=== PATIENT | female | born 1950 | race Two or more races ===

== ENCOUNTER 2020-03-21 12:20 | Outpatient (REF) | payer MEDICARE, SELFPAY | END 2020-03-21 12:21 | disposition home or self-care (01) | LOC: HO.LAB 12:20 | PROVIDERS: PCP Internal Medicine Geriatric Medicine; Visit Provider Internal Medicine | DX: Z20.828 Contact with and (suspected) exposure to other viral communicable diseases (principal) | CPT/HCPCS: C9803; U0003 ==

== ENCOUNTER 2021-01-14 13:15 | Outpatient (REF) | payer MEDICARE, SELFPAY ==
--- NOTE | ~2021-01-14 | MM_ITS ---
EXAMINATION: MM SCREENING DIGITAL BREAST TOMOSYNTHESIS, BILATERAL CLINICAL INFORMATION: Screening. Asymptomatic. The lifetime risk of breast cancer based on the Tyrer-Cuzick Model is 2%. COMPARISON: Mammography: 03/29/2019, 03/03/2018, 02/25/2017 TECHNIQUE: Digital breast tomosynthesis is performed in both the craniocaudal and mediolateral oblique views along with computer-aided detection (CAD). Synthesized 2D images are generated from the tomosynthesis. FINDINGS: There are scattered areas of fibroglandular density (ACR BI-RADS breast composition Category b). There are no significant masses, abnormal calcifications, or other abnormalities. Parenchymal pattern is similar to prior studies. No significant changes. MM/MM tomosynthesis screening BI IMPRESSION: No mammographic evidence of malignancy. ASSESSMENT: BI-RADS 1: Negative RECOMMENDATION: Routine annual mammography screening. This patient's information was entered into a reminder system with a target due date for their next mammogram.
== END 2021-01-14 13:16 | disposition home or self-care (01) ==
LOC: HO.MAMMO 13:15
PROVIDERS: Visit Provider Internal Medicine Geriatric Medicine
DX: Z12.31 Encounter for screening mammogram for malignant neoplasm of breast (principal)
CPT/HCPCS: 77063; 77067

== ENCOUNTER 2021-05-21 09:14 | Outpatient (REF) | payer MEDICARE, SELFPAY ==
--- NOTE | ~2021-05-21 | MM_ITS ---
EXAMINATION: BONE DENSITOMETRY CLINICAL INDICATION: Osteoporosis. COMPARISON: Previous BD dated 09/23/2017 and baseline BD dated 06/24/2005. TECHNIQUE: Using a [employer] DXA System (software version: 13.1) manufactured by [employer], dual-energy x-ray absorptiometry was performed of the lumbar spine and left hip. The images are of good technical quality. Summary results are attached. FINDINGS: AP SPINE L1-L4 (excluding L3): The data of L1-L4 has been changed to exclude the L3 vertebral body, because degenerative changes at this level may cause overestimation of lumbar spine density. Current: BMD 1.027 g/cm2, Z-score 0.7, T-score -1.2, osteopenia, 2.1% decrease from previous, 6.4% increase from baseline (<5% change is not significant). Prior: BMD 1.049 g/cm2. Baseline: BMD 0.965 g/cm2. LEFT FEMUR, NECK: Current: BMD 0.838 g/cm2, Z-score 0.5, T-score -1.4, osteopenia. Prior: BMD 0.802 g/cm2. Baseline: BMD 0.784 g/cm2. LEFT FEMUR, TOTAL: Current: BMD 0.909 g/cm2, Z-score 0.9, T-score -0.8, normal, 0.4% increase from previous, 8.5% increase from baseline (<5% change is not significant). Prior: BMD 0.905 g/cm2. Baseline: BMD 0.838 g/cm2. IDENTIFIED RISK FACTORS: Early menopause, secondary osteoporosis, osteoporosis. HISTORY OF FRACTURE: None listed. MEDICATIONS: Calcium supplements or multivitamin, vitamin D. MM/XR DEXA axial skeleton IMPRESSION: 1. DIAGNOSIS: Osteopenia based on the lowest T-score value of -1.4 in the femoral neck applying World Health Organization criteria. 2. 10-YEAR FRACTURE RISK PREDICTION, FRAX: Major osteoporotic fracture (clinical spine, forearm, hip or shoulder) 5.8%. Hip fracture 0.9%. 3. Treatment Recommendations: NOF guidelines recommend consideration for treatment in postmenopausal women and men age 50 and older presenting with the following: -A hip or vertebral (clinical or morphometric) fracture. -T-score less than or equal to -2.5 at the femoral neck or spine after appropriate evaluation to exclude secondary causes. -Low bone mass at the hip or spine and a 10-year fracture probability by FRAX of greater than or equal to 3% for hip fracture or greater than or equal to 20% for major osteoporotic fracture based on the [place] adapted WHO algorithm. 4. Other Recommendations: All treatment decisions require clinical judgment and consideration of individual patient factors, including patient preferences, comorbidities, previous drug use, risk factors not captured in the FRAX model (e.g. frailty, falls, vitamin D deficiency, increased bone turnover, interval significant decline in bone density) and possible under or overestimation of fracture risk by FRAX. Additional medical evaluation for secondary cause of low bone mineral density may be appropriate. FUTURE SCAN RECOMMENDATION: People with diagnosed cases of osteoporosis or at high risk for fracture should have regular bone mineral density tests. For patients eligible for Medicare, routine testing is allowed once every 2 years. The testing frequency can be increased to one year for patients who have rapidly progressing disease, those who are receiving or discontinuing medical therapy to restore bone mass, or have additional risk factors.
== END 2021-05-21 09:15 | disposition home or self-care (01) ==
LOC: HO.MAMMO 09:14
PROVIDERS: PCP Internal Medicine Geriatric Medicine; Visit Provider Internal Medicine Geriatric Medicine
DX: M81.0 Age-related osteoporosis without current pathological fracture (principal)
CPT/HCPCS: 77080

== ENCOUNTER 2022-01-19 13:29 | Outpatient (REF) | payer OTHER, SELFPAY ==
--- NOTE | ~2022-01-19 | MM_ITS ---
EXAMINATION: MM SCREENING DIGITAL BREAST TOMOSYNTHESIS, BILATERAL CLINICAL INFORMATION: Screening. Asymptomatic. The lifetime risk of breast cancer based on the Tyrer-Cuzick Model is 4%. COMPARISON: Mammography: 01/14/2021, 03/29/2019, 03/03/2018 TECHNIQUE: Digital breast tomosynthesis is performed in both the craniocaudal and mediolateral oblique views along with computer-aided detection (CAD). Synthesized 2D images are generated from the tomosynthesis. FINDINGS: There are scattered areas of fibroglandular density (ACR BI-RADS breast composition Category b). There are no significant masses, abnormal calcifications, or other abnormalities. There are scattered shifting fibroglandular parenchymal densities from year to year related to variation in positioning. No developing density or architectural abnormality. Again, there are scattered bilateral coarse, vascular, round, rim calcifications. No significant changes. MM/MM tomosynthesis screening BI IMPRESSION: No mammographic evidence of malignancy. ASSESSMENT: BI-RADS 2: Benign RECOMMENDATION: Routine annual mammography screening. This patient's information was entered into a reminder system with a target due date for their next mammogram.
== END 2022-01-19 13:30 | disposition home or self-care (01) ==
LOC: HO.MAMMO 13:29
PROVIDERS: Visit Provider Internal Medicine Geriatric Medicine
DX: Z12.31 Encounter for screening mammogram for malignant neoplasm of breast (principal)
CPT/HCPCS: 77063; 77067

== ENCOUNTER 2023-01-26 10:28 | Outpatient (REF) | payer OTHER, SELFPAY ==
--- NOTE | ~2023-01-26 | MM_ITS ---
EXAMINATION: MM SCREENING DIGITAL BREAST TOMOSYNTHESIS, BILATERAL CLINICAL INFORMATION: Screening. Asymptomatic. COMPARISON: Mammography: This study is compared with prior exams dating back to 2017. TECHNIQUE: Digital breast tomosynthesis is performed in both the craniocaudal and mediolateral oblique views along with computer-aided detection (CAD). Synthesized 2D images are generated from the tomosynthesis. FINDINGS: There are scattered areas of fibroglandular density (ACR BI-RADS breast composition Category b). There is a focal asymmetry at the lower inner quadrant of the right breast at anterior depth. Additional mammographic imaging of this finding is advised. Targeted sonography may be performed at the discretion of the diagnostic radiologist. In the left breast, there are no significant masses, abnormal calcifications, or other abnormalities. Few, benign calcifications are present in each breast. MM/MM tomosynthesis screening BI IMPRESSION: Focal asymmetry of the right breast warrants additional mammographic imaging. Sonography may be performed at the discretion of the diagnostic radiologist. No mammographic signs of malignancy left breast. ASSESSMENT: BI-RADS BI-RADS 0 - Incomplete: Needs additional Imaging. RECOMMENDATION: 1. Additional views of the right breast 2. Targeted ultrasound if warranted after review of the additional views. 3. Radiology department staff will contact the patient for additional imaging. Additional Imaging required This examination should not preclude the clinical evaluation of a suspicious palpable abnormality. This patient's information was entered into a reminder system with a target due date for their next mammogram.
== END 2023-01-26 10:29 | disposition home or self-care (01) ==
LOC: HO.MAMMO 10:28
PROVIDERS: Visit Provider Internal Medicine Geriatric Medicine
DX: Z12.31 Encounter for screening mammogram for malignant neoplasm of breast (principal)
CPT/HCPCS: 77063; 77067

== ENCOUNTER → 2023-01-26 11:00 | Outpatient (BNV) | payer OTHER, SELFPAY | PROVIDERS: Visit Provider Radiology Diagnostic Radiology | DX: Z12.31 Encounter for screening mammogram for malignant neoplasm of breast (principal) | CPT/HCPCS: 77063; 77067 ==

== ENCOUNTER 2023-02-18 08:52 | Outpatient (REF) | payer MEDICARE, MEDICAID, SELFPAY | END 2023-02-18 08:53 | disposition home or self-care (01) | LOC: HO.MAMMO 08:52 | PROVIDERS: PCP Internal Medicine Geriatric Medicine; Visit Provider Internal Medicine Geriatric Medicine | DX: N64.89 Other specified disorders of breast (principal) | CPT/HCPCS: 77061; 77065 ==

== ENCOUNTER → 2023-02-18 09:00 | Outpatient (BNV) | payer MEDICARE, MEDICAID, SELFPAY | PROVIDERS: PCP Internal Medicine Geriatric Medicine; Visit Provider Radiology Diagnostic Radiology | DX: R92.1 Mammographic calcification found on diagnostic imaging of breast (principal) | CPT/HCPCS: 77061; 77065; G0279 ==

== ENCOUNTER 2023-03-22 11:49 | Outpatient (REF) | payer OTHER, SELFPAY ==
[2023-03-22 13:32] LABS: MANUAL DIFF FLAG NO
[2023-03-22 13:42] LABS: Basophils Absolute Auto 0.1 X10*3/uL (0.0-0.2); Basophils Percent Auto 0.6 % (0-2); Eosinophils Absolute Auto 0.2 X10*3/uL (0.0-0.4); Eosinophils Percent Auto 2.1 % (0-4); Imm Gran Abs Auto 0.02 X10*3/uL (0.00-0.03); Imm Gran Pct Auto 0.2 % (0.0-0.4); Lymphocytes Absolute Auto 3.8 X10*3/uL (1.2-4.9); Lymphocytes Percent Auto 46.8 % (20-40); Mean Corpuscular HGB Conc 33.3 g/dl (31.0-35.0); Mean Corpuscular Hemoglobin 29.2 pg (27.0-33.0); Mean Corpuscular Volume 87.7 fL (80.0-98.0); Monocytes Absolute Auto 0.8 X10*3/uL (0.1-1.2); Monocytes Percent Auto 9.6 % (2-11); Neutrophils Absolute Auto 3.3 x10*3/uL (2.0-8.3); Neutrophils Percent Auto 40.7 % (45-73); Platelet Count 160 X10*3/uL (160-400); Red Blood Count 4.79 X10*6/uL (4.20-5.50); Red Cell Distribution Width 13.4 % (11.0-16.0)
[2023-03-22 14:18] LABS: Creatinine Urine 140.47 mg/dL; Microalbum/Creatinine Ratio Ur 12.8 ug/mg cr (<30)
[2023-03-22 14:22] LABS: Anion Gap 14 (12-20); Blood Urea Nitrogen 14 mg/dL (9-16); Calcium 10.3 mg/dL (8.4-10.2); Carbon Dioxide 27 mmol/L (22-29); Chloride 103 mmol/L (96-108); Estimated Glomerular Filt Rate > 60; Glucose Random 135 mg/dL (60-115); Potassium 4.1 mmol/L (3.3-5.1); Sodium 140 mmol/L (135-145)
[2023-03-22 14:30] LABS: TSH reflex Free T4 0.52 uIU/mL (0.32-4.0)
[2023-03-22 14:36] LABS: Vitamin B12 313 pg/mL (200-900)
[2023-03-24 10:29] LABS: RPR Rapid Plasma Reagin NON-REACTIVE (NON-REACTIVE)
== END 2023-03-22 11:50 | disposition home or self-care (01) ==
LOC: HO.HHCL 11:49
PROVIDERS: Visit Provider Internal Medicine Geriatric Medicine
DX: E11.65 Type 2 diabetes mellitus with hyperglycemia (principal); I10 Essential (primary) hypertension; R41.3 Other amnesia
CPT/HCPCS: 36415; 80048; 82043; 82570; 82607; 84443; 85025; 86592

== ENCOUNTER → 2023-07-05 13:45 | Outpatient (REF) | payer OTHER, SELFPAY ==
--- NOTE | 2023-07-05 13:50 | CA_ITS ---
Transthoracic Echocardiogram Patient (Last, First, Middle): Kitty Thornton M Gender: Female Date of : 1950 Age: 73 Procedure Date: 07/05/2023 Procedure Type: Transthoracic Echocardiogram Location: OP Height: 160. cm Weight: 56.7 kg BSA: 1.58 m2 Heart Rate: 76 bpm BP: 125 / 75 mmHg Statement Distribution Clerk: TOI Elizabeth MD: Medhat Hernandez MD Mold Filler: Irineo Paz MD Symptoms: LEFT VENTRICULAR OUTFLOW TRACT. Q24.8 Study Quality: Fair ECG Rhythm: Sinus Conclusions: - 1. Normal LV ejection fraction of 65-70% with mild asymmetric septal hypertrophy without clear evidence of dynamic obstruction across the LVOT 2. Mild calcific aortic stenosis 3. Normal RV systolic pressure 4. No gross pericardial effusion Findings Left Ventricle Normal left ventricular size, thickness, and systolic function. The visually estimated ejection fraction is between 65-70%. There is no dynamic left ventricular outflow tract obstruction. There is systolic anterior motion of the chordae of the mitral valve. Spectral Doppler is indicative of an impaired relaxation filling pattern. E/E prime ratio is between 8 and 15 consistent with indeterminate filling pressures. There is mild septal asymmetric hypertrophy. Right Ventricle Normal right ventricular cavity size and systolic function. Atria The left atrium is normal in size. Interatrial shunt cannot be excluded. Aortic Valve There is mild calcification of the aortic valve. There is mild aortic valve stenosis. The peak aortic gradient is 14 mmHg.The mean gradient is 8 mmHg. There is no aortic valve regurgitation. Mitral Valve There is mild anterior and posterior mitral leaflet thickening. There is mild mitral annular calcification. There is trace mitral valve regurgitation. There is no mitral valve stenosis. Pulmonic Valve The pulmonic valve is likely normal. Tricuspid Valve Normal tricuspid valve structure. There is trace tricuspid valve regurgitation. The right ventricular systolic pressure is normal. The right ventricular systolic pressure is 24 mmHg. Normal right atrial pressure. There is no evidence of pulmonary hypertension. Great Vessels All visible segments of the aorta are normal in size. The pulmonary artery was not well visualized. There is no dilatation of the ascending aorta measuring 3.00 cm. Venous The inferior vena cava is normal in size and collapses greater than 50% with inspiration. Pericardium/Pleural There is no evidence of pericardial effusion. Prior Study Comparison No prior study available for comparison. Measurements 2D Linear Measurements IVSd: 1.45 0.6-0.9/0.6-1.0 cm LVIDd: 2.78 3.9-5.3/4.2-5.9 cm LVIDd Index: 1.76 2.4-3.2/2.2-3.1 cm/m2 LVIDs: 1.64 2.0-3.6 cm LVPWd: 1.08 0.7-1.1 cm LA Diam: 2.80 2.7-3.8/3.0-4.0 cm LAIDs Index: 1.77 1.5-2.3 cm/m2 LV Mass: 133.37 67-162/88-224 g LV Mass Index: 84.41 43-95/49-115 g/m2 LVOT Diam: 1.80 3.0+(-)1.3 cm 2D Systolic Function EF 4C: 68.30 >55% EF 2C: 70.00 >55% EF BiP: 69.70 >55% Mitral Valve MV Pk E: 0.78 MV PK A: 1.12 MV Decel Time: 285.00 E/A: 0.70 E'Lateral: 6.42 E'Medial: 5.87 E/E' Med: 13.30 E/E' Lat: 12.20 PHT: 84.00 MVA PHT: 2.62 Decel Luce: 2.74 Aortic Valve AoV Pk Lino: 1.90 AoV Mn Lino: 1.31 AoV VTI: 0.38 AoV Pk Grad: 14.00 Aov Mn Grad: 8.00 CHONG Cont.VTI: 1.43 LVOT LVOT Pk Lino: 1.05 LVOT Mn Lino: 0.76 LVOT VTI: 0.22 LVOT Pk Grad: 4.00 LVOT Mn Grad: 3.00 LVOT Diam: 1.80 LVOT Area: 2.54 Diastolic Function MV Pk E: 0.78 MV Pk A: 1.12 E/A: 0.70 E'Medial: 5.87 E/E' Med: 13.30 E' Laterial: 6.42 E/E' Lat: 12.20 Right Ventricle TAPSE (mm): 15.40 TVS' Lino: 11.90 Tricuspid Valve TR Pk Lino: 2.31 TR Pk Grad: 21.00 RA Press: 3.00 RVSP: 24.00 Great Vessels Aorta Sinus of Valsalva: 3.00 2.0-3.5 cm Ao Asc: 3.00 2.1-3.4 cm Pulmonary Valve PV Pk Lino: 0.94 Peak PV Grad: 4.00 Updated in Other Vendor System with Status of Final Irineo Paz MD electronically signed on 07/06/2023 4:52:24 PM with status of Final
== END ==
LOC: HO.CARD 13:45
PROVIDERS: Visit Provider Internal Medicine Cardiovascular Disease
DX: Q24.8 Other specified congenital malformations of heart (principal)
CPT/HCPCS: 93306

== ENCOUNTER → 2023-07-05 13:50 | Outpatient (BNV) | payer OTHER, SELFPAY | PROVIDERS: Visit Provider Internal Medicine Cardiovascular Disease | DX: I34.0 Nonrheumatic mitral (valve) insufficiency (principal); I36.1 Nonrheumatic tricuspid (valve) insufficiency | CPT/HCPCS: 93306 ==

== ENCOUNTER 2023-07-27 10:45 | Outpatient (REF) | payer OTHER, SELFPAY ==
[2023-07-27 11:14] LABS: MANUAL DIFF FLAG NO
[2023-07-27 11:36] LABS: Basophils Percent Auto 0.4 % (0-2); Eosinophils Absolute Auto 0.2 X10*3/uL (0.0-0.4); Eosinophils Percent Auto 2.7 % (0-4); Hematocrit 40.1 % (37.0-47.0); Hemoglobin 13.4 g/dl (12.0-16.0); Imm Gran Abs Auto 0.01 X10*3/uL (0.00-0.03); Imm Gran Pct Auto 0.1 % (0.0-0.4); Lymphocytes Absolute Auto 3.3 X10*3/uL (1.2-4.9); Lymphocytes Percent Auto 44.6 % (20-40); Mean Corpuscular HGB Conc 33.4 g/dl (31.0-35.0); Mean Corpuscular Hemoglobin 28.3 pg (27.0-33.0); Mean Corpuscular Volume 84.8 fL (80.0-98.0); Mean Platelet Volume 11.9 fL (9.4-12.3); Monocytes Absolute Auto 0.7 X10*3/uL (0.1-1.2); Monocytes Percent Auto 9.3 % (2-11); Neutrophils Absolute Auto 3.2 x10*3/uL (2.0-8.3); Neutrophils Percent Auto 42.9 % (45-73); Platelet Count 154 X10*3/uL (160-400); Red Blood Count 4.73 X10*6/uL (4.20-5.50); White Blood Count 7.4 X10*3/uL (4.8-10.8)
[2023-07-27 13:57] LABS: Alanine Aminotransferase 27 U/L (0-31); Albumin Level 4.4 g/dL (3.5-5.0); Alkaline Phosphatase 55 U/L (39-117); Anion Gap 14 (12-20); Aspartate Amino Transferase 33 U/L (5-31); Bilirubin Total 0.6 mg/dL (0.0-1.0); Blood Urea Nitrogen 7 mg/dL (9-16); Carbon Dioxide 29 mmol/L (22-29); Chloride 100 mmol/L (96-108); Cholesterol 169 mg/dL (<200); Estimated Glomerular Filt Rate > 60; Glucose Random 143 mg/dL (60-115); HDL Cholesterol 52 mg/dL (>40); LDL Cholesterol Calculated 87 mg/dL (<100); Sodium 138 mmol/L (135-145); Total Protein 7.6 g/dL (6.5-8.0); Triglycerides 151 mg/dL (<150)
[2023-07-27 14:04] LABS: Creatinine Urine 62.12 mg/dL; Microalbum/Creatinine Ratio Ur 12.8 ug/mg cr (<30)
== END 2023-07-27 10:46 | disposition home or self-care (01) ==
LOC: HO.HHCL 10:45
PROVIDERS: Visit Provider Internal Medicine Geriatric Medicine
DX: E11.65 Type 2 diabetes mellitus with hyperglycemia (principal)
CPT/HCPCS: 36415; 80053; 80061; 82043; 82570; 85025

== ENCOUNTER 2024-02-01 08:42 | Outpatient (REF) | payer OTHER, SELFPAY ==
--- NOTE | ~2024-02-01 | MM_ITS ---
EXAMINATION: MM SCREENING DIGITAL BREAST TOMOSYNTHESIS, BILATERAL CLINICAL INFORMATION: Screening. Asymptomatic. COMPARISON: Mammography: Comparison is made with available priors TECHNIQUE: Digital breast mammography with tomosynthesis is performed in both the craniocaudal and mediolateral oblique views along with computer-aided detection (CAD). FINDINGS: There are scattered areas of fibroglandular density (ACR BI-RADS breast composition Category b). There are no significant masses, abnormal calcifications, or other abnormalities. MM/MM tomosynthesis screening BI IMPRESSION: No mammographic evidence of malignancy. ASSESSMENT: BI-RADS BI-RADS 1 - Negative RECOMMENDATION: Routine annual mammography screening. 1 year F/U This examination should not preclude the clinical evaluation of a suspicious palpable abnormality. This patient's information was entered into a reminder system with a target due date for their next mammogram. Electronically signed by: Maria M Hoyos DO 02/13/2024 03:51 PM EDT
== END 2024-02-01 08:43 | disposition home or self-care (01) ==
LOC: HO.MAMMO 08:42
PROVIDERS: PCP Internal Medicine Geriatric Medicine; Visit Provider Internal Medicine Geriatric Medicine
DX: Z12.31 Encounter for screening mammogram for malignant neoplasm of breast (principal)
CPT/HCPCS: 77063; 77067

== ENCOUNTER → 2024-02-01 10:45 | Outpatient (BNV) | payer OTHER, SELFPAY | PROVIDERS: PCP Internal Medicine Geriatric Medicine; Visit Provider Internal Medicine | DX: Z12.31 Encounter for screening mammogram for malignant neoplasm of breast (principal) | CPT/HCPCS: 77063; 77067 ==

== ENCOUNTER 2024-02-09 10:38 | Outpatient (REF) | payer OTHER, SELFPAY ==
[2024-02-09 12:31] LABS: Alanine Aminotransferase 36 U/L (0-31); Albumin Level 4.4 g/dL (3.5-5.0); Alkaline Phosphatase 55 U/L (39-117); Anion Gap 14 (12-20); Aspartate Amino Transferase 31 U/L (5-31); Bilirubin Total 0.3 mg/dL (0.0-1.0); Blood Urea Nitrogen 8 mg/dL (9-16); Calcium 10.3 mg/dL (8.4-10.2); Carbon Dioxide 28 mmol/L (22-29); Chloride 103 mmol/L (96-108); Cholesterol 132 mg/dL (<200); Estimated Glomerular Filt Rate > 60; Glucose Random 143 mg/dL (60-115); HDL Cholesterol 49 mg/dL (>40); LDL Cholesterol Calculated 65 mg/dL (<100); Potassium 5.6 mmol/L (3.3-5.1); Sodium 139 mmol/L (135-145); Total Protein 7.5 g/dL (6.5-8.0); Triglycerides 92 mg/dL (<150)
[2024-02-09 12:34] LABS: Vitamin D 25-OH Total 141.7 ng/mL (>30)
[2024-02-09 12:40] LABS: Microalbumin Urine < 5.0 mg/L
== END 2024-02-09 10:39 | disposition home or self-care (01) ==
LOC: HO.HHCL 10:38
PROVIDERS: Visit Provider Internal Medicine Geriatric Medicine
DX: E11.65 Type 2 diabetes mellitus with hyperglycemia (principal); I10 Essential (primary) hypertension; M81.0 Age-related osteoporosis without current pathological fracture; Z12.11 Encounter for screening for malignant neoplasm of colon
CPT/HCPCS: 36415; 80053; 80061; 82043; 82306; 82570

== ENCOUNTER 2024-02-15 09:54 | Outpatient (REF) | payer OTHER, SELFPAY ==
[2024-02-15 11:03] LABS: MANUAL DIFF FLAG NO
[2024-02-15 11:13] LABS: Basophils Percent Auto 0.7 % (0-2); Eosinophils Absolute Auto 0.2 X10*3/uL (0.0-0.4); Eosinophils Percent Auto 3.7 % (0-4); Hematocrit 39.9 % (37.0-47.0); Hemoglobin 13.4 g/dl (12.0-16.0); Imm Gran Abs Auto 0.03 X10*3/uL (0.00-0.03); Imm Gran Pct Auto 0.5 % (0.0-0.4); Lymphocytes Absolute Auto 2.9 X10*3/uL (1.2-4.9); Lymphocytes Percent Auto 48.4 % (20-40); Mean Corpuscular HGB Conc 33.6 g/dl (31.0-35.0); Mean Corpuscular Hemoglobin 28.3 pg (27.0-33.0); Mean Corpuscular Volume 84.2 fL (80.0-98.0); Mean Platelet Volume 12.5 fL (9.4-12.3); Monocytes Absolute Auto 0.6 X10*3/uL (0.1-1.2); Monocytes Percent Auto 9.5 % (2-11); Neutrophils Absolute Auto 2.2 x10*3/uL (2.0-8.3); Neutrophils Percent Auto 37.2 % (45-73); Platelet Count 135 X10*3/uL (160-400); Red Blood Count 4.74 X10*6/uL (4.20-5.50); Red Cell Distribution Width 14.1 % (11.0-16.0)
[2024-02-15 11:29] LABS: Anion Gap 16 (12-20); Blood Urea Nitrogen 10 mg/dL (9-16); Calcium 9.5 mg/dL (8.4-10.2); Carbon Dioxide 23 mmol/L (22-29); Chloride 105 mmol/L (96-108); Estimated Glomerular Filt Rate > 60; Glucose Random 138 mg/dL (60-115); Potassium 4.7 mmol/L (3.3-5.1); Sodium 139 mmol/L (135-145)
== END 2024-02-15 09:55 | disposition home or self-care (01) ==
LOC: HO.HHCL 09:54
PROVIDERS: Visit Provider Internal Medicine Geriatric Medicine
DX: E11.65 Type 2 diabetes mellitus with hyperglycemia (principal); I10 Essential (primary) hypertension; M81.0 Age-related osteoporosis without current pathological fracture; Z12.11 Encounter for screening for malignant neoplasm of colon; E87.5 Hyperkalemia
CPT/HCPCS: 36415; 80048; 85025

== ENCOUNTER 2024-03-16 13:46 | Outpatient (REF) | payer OTHER, SELFPAY ==
--- NOTE | ~2024-03-16 | MM_ITS ---
EXAMINATION: BONE DENSITOMETRY CLINICAL INDICATION: Age-related osteoporosis without current pathological fracture. COMPARISON: Previous BD dated 05/21/2021 and baseline BD dated 06/24/2005. TECHNIQUE: Using a [employer] DXA System (software version: 13.1) manufactured by [employer], dual-energy x-ray absorptiometry was performed of the lumbar spine and left hip. The images are of good technical quality. Summary results are attached. FINDINGS: AP SPINE L1-L4 (excluding L3): The data of L1-L4 has been changed to exclude the L3 vertebral body, because at this level may cause overestimation of lumbar spine density. Current: BMD 1.068 g/cm2, Z-score 0.8, T-score -0.8, normal, 4.0% increase from previous, 11.1% increase from baseline (<5% change is not significant). Prior: BMD 1.027 g/cm2. Baseline: BMD 0.965 g/cm2. LEFT FEMUR, NECK: Current: BMD 0.883 g/cm2, Z-score 0.7, T-score -1.1, osteopenia. Prior: BMD 0.838 g/cm2. Baseline: BMD 0.784 g/cm2. LEFT FEMUR, TOTAL: Current: BMD 0.964 g/cm2, Z-score 1.3, T-score -0.3, normal, 6.1% increase from previous, 15.0% increase from baseline (<5% change is not significant). Prior: BMD 0.909 g/cm2. Baseline: BMD 0.838 g/cm2. IDENTIFIED RISK FACTORS: Osteoporosis. Low calcium intake. Secondary osteoporosis (early menopause). HISTORY OF FRACTURE: None listed. MEDICATIONS: Calcium supplement and/or multivitamin. Vitamin D. MM/XR DEXA axial skeleton IMPRESSION: 1. DIAGNOSIS: Osteopenia based on the lowest T-score value of -1.1 in the femoral neck applying World Health Organization criteria. 2. 10-YEAR FRACTURE RISK PREDICTION, FRAX: Major osteoporotic fracture (clinical spine, forearm, hip or shoulder) 5.7%. Hip fracture 0.9%. 3. Treatment Recommendations: NOF guidelines recommend consideration for treatment in postmenopausal women and men age 50 and older presenting with the following: -A hip or vertebral (clinical or morphometric) fracture. -T-score less than or equal to -2.5 at the femoral neck or spine after appropriate evaluation to exclude secondary causes. -Low bone mass at the hip or spine and a 10-year fracture probability by FRAX of greater than or equal to 3% for hip fracture or greater than or equal to 20% for major osteoporotic fracture based on the [place] adapted WHO algorithm. 4. Other Recommendations: All treatment decisions require clinical judgment and consideration of individual patient factors, including patient preferences, comorbidities, previous drug use, risk factors not captured in the FRAX model (e.g. frailty, falls, vitamin D deficiency, increased bone turnover, interval significant decline in bone density) and possible under or overestimation of fracture risk by FRAX. Additional medical evaluation for secondary cause of low bone mineral density may be appropriate. FUTURE SCAN RECOMMENDATION: People with diagnosed cases of osteoporosis or at high risk for fracture should have regular bone mineral density tests. For patients eligible for Medicare, routine testing is allowed once every 2 years. The testing frequency can be increased to one year for patients who have rapidly progressing disease, those who are receiving or discontinuing medical therapy to restore bone mass, or have additional risk factors. Electronically signed by: Wilson Cortes MD 03/19/2024 09:21 AM MARCI MAGUIRE
== END 2024-03-16 13:47 | disposition home or self-care (01) ==
LOC: HO.MAMMO 13:46
PROVIDERS: PCP Internal Medicine Geriatric Medicine; Visit Provider Internal Medicine Geriatric Medicine
DX: M81.0 Age-related osteoporosis without current pathological fracture (principal)
CPT/HCPCS: 77080

== ENCOUNTER 2024-06-22 12:32 | Outpatient (REF) | payer OTHER, SELFPAY ==
--- OUTSIDE RECORDS SUMMARY | 2024-06-22 13:20 | XMS_ITS | Encounter Summary ---
Author Organization [facility] Address [address] [place] [address] Care Team Providers Care Rapier Insertion Loom Fixer Name Role Phone Unavailable Primary Care Provider Unavailabl e Encounter Details Date Type Department Care Team (Latest Contact Info) Description 05/29/2024 Travel Social History Tobacco Use Types Packs/Day Years Used Date Smoking Tobacco: Never Passive Smoke Exposure: Never Smokeless Tobacco: Never Social Connections Answer Date Recorded Connectedness 0 03/05/2022 Financial Resource Strain Answer Date R ecorded Financial Resource Strain 0 2021 Stress Answer Date Recorded Stress 0 03/05/2022 Physical Activity Answer Date Recorded Physical Activity 0 08/10/2019 Food Insecurity Answer Date Recorded Food 0 03/05/2022 Transportation Needs Answer Date Record ed Transportation 0 03/05/2022 Housing Stability Answer Date Recorded Housing 0 03/05/2022 Safety and Environment Answer Date Carlos rded Safety 0 03/05/2022 Utilities Answer Date Recorded Utilities 0 03/05/2022 Employment Answer Date Recorded Stress 0 03/05/2022 Comments Unknown Sex and Gender Information Value Date Recorded Sex Assigned at Not on file Legal Sex Female 8:52 AM PDT Gender Identity Not on file Sexual Orientation Not on file COVID-19 Exposure Response Date Recorded In the last 10 days, have yo u been in contact with someone who was confirmed or suspected to have Coronavirus/COVID-19? No / Unsure 05/29/2024 9:33 AM EST documented as of this encounter Plan of Treatment Upcoming Encounters Date Type Department Care Team (Late st Contact Info) Description 07/31/2024 4:20 PM EDT Office Visit [facility] [address] [place] [phone] Andra Erazo, JONA [address] [place] [address] documented as of this encounter Visit Diagnoses Not on filedocumented in this encounter
--- OUTSIDE RECORDS SUMMARY | 2024-06-22 13:20 | XMS_ITS | Encounter Summary ---
Author Organization [facility] Address [address] [place] [address] Care Team Providers Care Social Media Analyst Name Role Phone Unavailable Primary Care Provider Unavailabl e Encounter Details Date Type Department Care Team (Late st Contact Info) Description 05/29/2024 10:20 AM EST Office Visit [facility] [address] [place] [phone] Andra Erazo DDS [address] [place], [place] [id number] Partial edentulism, unspecified edentulism class (Primary Dx) Social History Tobacco Use Types Packs/Day Years [...] AM EST documented as of this encounter Progress Notes * Andra Erazo DDS - 05/29/2024 10:31 AM EST Dental Removable - Impressions SUBJECTIVE: Kitty Thornton, 74 year old female, presents alone for mandibular resin partial denture Final Impressions. Digester Operator Helper: No No chief complaint on file. OBJECTIVE: RMHx: Yes Vitals: There were no vitals filed for this visit. ASSESSMENT: Dx: K08.409 Partial edentulism, unspecified edentulism class (primary encounter diagnosis) Dx Details (Clinical Decision-Making): patient came for the final impression for mandibular partialdenture PLAN: Informed Consent/PARQ (Procedure, Alternatives, Risks, Questions): Patient confirms informed consent using PARQ. Dental procedures in this visit [id number] - CASE PRESENTATION SUBS DTL & EXTENSIVE TX PLN (Completed) Service provider: Andra Erazo DDS Billing provider: Andra Erazo DDS [id number] - FINAL IMPRESSION - RPD (Completed) Service provider: Andra Erazo DDS Billing provider: Andra Erazo DDS Impressions taken with Alginate. Border molding completed with PVS Post-Op Information Given: verbal Referral: No orders of the following type(s) were placed in this encounter: Referral. Rx: No orders of the defined types were placed in this encounter. Behavior: Excellent DA: nakari Wax bite NV: Treatment - Denture Visit documented in this encounter Plan of Treatment Upcoming Encounters Date Type Department Care Team (Late st Contact Info) Description 07/31/2024 4:20 PM EDT Office Visit [facility] [address] [place] [phone] Andra Erazo DDS [address] [place] [address] documented as of this encounter Procedures Procedure Name Priority Date/Time Associated Diagnosis Comments FINAL IMPRESSION - RPD Routine 10:20 AM EST Partial edentulism, unspecified edentulism class CASE PRESENTATION SUBS DTL & EXTENSIVE TX PLN Routine 05/29/2024 10:20 AM EST Partial edentulism, unspecified edentulism class documented in this encounter Visit Diagnoses Diagnosis Partial edentulism, unspecified edentulism class- Primary documented in this encounter
--- OUTSIDE RECORDS SUMMARY | 2024-06-22 13:20 | XMS_ITS | Clinical Summary ---
Author Organization [facility] Address [id number] [place] [phone] Care Team Providers Care Electroneurodiagnostic Technologist Name Role Phone Unavailable Primary Care Provider Unavailabl e Surgical History Surgery Date Site/Laterality Comments SHOULDER SURGERY PROCEDURE: HISTORICAL SHOULDER SURGERY; COMMENT: rotator cuff repair HAND SURGERY PROCEDURE: HISTORICAL HAND SURGERY FOOT SURGERY PROCEDURE: HISTORICAL FOOT SURGERY COLONOSCOPY 11/20/12 PROCEDURE: HISTORICAL COLONOSCOPY; COMMENT: tics; repeat in ten yrs BREAST BIOPSY Right PROCEDURE: BX BREAST; PERC NEEDLE CORE W/IMAG GUID Medical History Medical History Date Comments Insomnia DX:Insomnia Osteoporosis DX:Osteoporosis Hyperlipidemia DX:Hyperlipidemi a Shoulder pain DX:Shoulder pain GE reflux 07/05/2012 DX:GE reflux Unspecified essential hypertension DX:Unspecified essential hypertension 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 Shoulder pain, bilateral 12/13/2012 DX:Shou lder pain, bilateral; COMMENT: Chronic problem and the patient had surgery in both shoulders in the past Hemangioma of liver 05/31/2013 DX:Hemangiom a of liver Diabetic neuropathy, painful (CMS/HCC) 3 DX:Diabetic neuropathy, painful (HCC) Diabetes type 2, uncontrolled 07/05/2012 DX :Diabetes type 2, uncontrolled Depression 07/05/2012 DX:Depression; C OMMENT: Patient is following with [facility] [place] Family History Medical History Relation Name Comments Cataracts Mother Arthritis Son 1 back Blindness Neg Hx Glaucoma Neg Hx Macular degeneration Neg Hx Strabismus Neg Hx Relation Name Status Comments Mother Son 1 Son 2 Social History Tobacco Use Types Packs/Day Years Used Date Smoking Tobacco: Former Smokeless Tobacco: Never Alcohol Use Standard Drinks/Week Comments No 0 (1 standard drink = 0.6 oz pur e alcohol) Sex and Gender Information Value Date Recorded Sex Assigned at Not on file Gender Identity Not on file Sexual Orientation Not on file Obstetrics History Plan of Treatment Health Maintenance Due Date Last Done Comments Diabetes: Annual GFR (Glomerular Filtration Rate) 1949 Diabetes: Annual Foot Exam 1959 Diabetes: Annual Retina Eye Exam 1959 Hepatitis A Vaccines (1 of 2 - Risk 2-dose series) 02/06/1968 Zoster Vaccines (1 of 2) 1999 Hepatitis B Vaccines (1 of 3 - Risk 3-dose series) 2009 Pneumococcal Vaccine: 65+ Years (2 of 2 - PCV) 10/12/2015 10/11/2014 Cholesterol Screening (Lipid Panel) 04/28/2022 Colorectal Cancer Screening: Colonoscopy 04/28/2022 Depression Screening 04/28/2022 Falls Risk Assessment 04/28/2022 Hepatitis C Screening 04/28/2022 Osteoporosis Screening (Bone Density Screening) 04/28/2022 Social Influencers of Health Screening 04/28/2022 Diabetes: Annual Urine Albumin-Creatinine Ratio (uACR) 05/01/2022 Diabetes: Blood Sugar Contro l Test (HGBA1C) 05/01/2022 DTaP,Tdap,and Td Vaccines (2 - Td or Tdap) 08/21/2022 08/21/2012 COVID-19 Vaccine (1 - 2023-2 5 season) 2024 Influenza Vaccine (#1) 2024 5, 03/27/2014, 03/14/2013 RSV Immunization Patients 60 + Years Old (1 - 1-dose 75+ series) 02/06/2024 HIB Vaccines Aged Out No longer eligi ble based on patient's age to complete this topic HPV Vaccines Aged Out No longer eligi ble based on patient's age to complete this topic IPV Vaccines Aged Out No longer eligi ble based on patient's age to complete this topic MMR Vaccines Aged Out No longer eligi ble based on patient's age to complete this topic Meningococcal ACWY Vaccine Aged Out N o longer eligible based on patient's age to complete this topic RSV Immunization Patients Under 20 months Aged Out No longer eligible b ased on patient's age to complete this topic Varicella Vaccines Aged Out No longer eligible based on patient's age to complete this topic
--- OUTSIDE RECORDS SUMMARY | 2024-06-22 13:20 | XMS_ITS | Clinical Summary ---
Author Organization [facility] Address [address] [place] [address] Care Team Providers Care Fence Rider Name Role Phone Unavailable Primary Care Provider Unavailabl e Source Comments PLEASE NOTE, if this patient is a minor, it may be UNLAWFUL to discuss sensitive information that is contained in these records (such as FAMILY PLANNING, MENTAL HEALTH or SUBSTANCE ABUSE) with the minor patient's parent or other person without the patient's specific authorization.[facility] Allergies No known active allergies Medications TRULICITY 3 mg/0.5 mL pen injector 11/12/2021 Active DULoxetine (CYMBALTA) [address] capsule 11/12/2021 Activ e metFORMIN (GLUCOPHAGE) 1,000 mg tablet 1,000 mg 08/15/2019 Act angélica TRUEPLUS LANCETS 33 gauge 11/12/2021 Active losartan (COZAAR) 25 mg tablet Take 25 mg by mouth every morning 10/15/[address] tablet Take 81 mg by mouth 08/24/2019 Active Active Problems No known active problems Encounters Date Type Department Care Team Description 05/29/2024 10:20 AM EST Office Visit [address] [phone] Andra Erazo DDS Partial edentulism, unspecified edentulism class (Primary Dx) 05/29/2024 Travel 05/04/2024 11:00 AM EST Office Visit [address] [phone] Gerard Han, TOM Partial edentulism, unspecified edentulism class (Primary Dx) 05/04/2024 Travel 04/23/2024 1:00 PM EST Office Visit [address] [phone] Eleazar Alex, [facility] Encounter for dental examination (Primary Dx) 04/23/2024 Travel 04/05/2024 1:00 PM EST Office Visit [facility] [address] [place] [phone] Gerard Han DMD Ill-fitting dentures (Primary Dx) 04/05/2024 Travel from Last 3 Months Social History Tobacco Use Types Packs/Day Years Used Date Smoking Tobacco: Never Passive Smoke Exposure: Never Smokeless Tobacco: Never Tobacco Cessation:Counseling Given: Not Answered Social Connections Answer Date Recorded Connectedness 0 [...] No / Unsure 05/29/2024 9:33 AM EST Last Filed Vital Signs Vital Sign Reading Time Taken Comments Blood Pressure 104/66 04/23/2024 1:40 PM EST Pulse 57 04/23/2024 1:40 PM EST Temperature - - Respiratory Rate - - Oxygen Saturation - - Inhaled Oxygen Concentration - - Weight - - Height - - Body Mass Index - - Plan of Treatment Upcoming Encounters Date Type Department Care Team ([facility] st Contact Info) Description 07/31/2024 4:20 PM EDT Office Visit [facility] [address] [place] [phone] Andra Erazo DDS [address] [place] [address] Health Maintenance Due Date Last Done Comments Hepatitis C Screening 1949 Medicare Annual Wellness Visit 1967 CT Colonography 1994 Colonoscopy 1994 Colorectal Cancer Screening 1994 FIT/gFOBT 1994 Fecal DNA 1994 Flexible Sigmoidoscopy 1994 Imm-Zoster, Recombinant (1 of 2) 1999 Falls Prevention 2014 Alcohol and Drug Screen 05/16/2024 Depression Annual Screen 05/16/2024 Dental Perio Charting 10/22/2024 10/21/2023 , 02/24/2023, 12/28/2021 Tobacco Screening 03/15/2025 03/15/2024 Hypertension Screening (#1) 04/23/2025 Dental BW 04/25/2025 04/23/2024, 06/0 11/2023, 02/24/2023, Additional history exists Dental Examination 04/25/2025 04/23/2024, 0 10/21/2023, 02/24/2023, Additional history exists Dental Prophy 04/25/2025 04/23/2024, 06/0 11/2023, 02/24/2023, Additional history exists Dental FMX/Pano 12/30/2026 12/28/2021 Lipid Screening 02/08/2029 02/09/2024, 07/27/2023 Imm-DTaP/Tdap/Td (3 - Td or Tdap) 03/22/2033 023, 08/21/2012 Imm-Pneumococcal 65+ Completed 08/17/2019, 04/21/2016, 10/11/2014 [id number] Completed 02/09/2024, 1205/2022, 07/28/2022, Additional history exists Imm-Influenza Completed 02/09/2024, 01/16, 02/24/2017, Additional history exists Bone Density Screening Completed 03/16/2024 Procedures Procedure Name Priority Date/Time Associated Diagnosis Comments FINAL IMPRESSION - RPD Routine 10:20 AM EST Partial edentulism, unspecified edentulism class CASE PRESENTATION SUBS DTL & EXTENSIVE TX PLN Routine 05/29/2024 10:20 AM EST Partial edentulism, unspecified edentulism class REMOVABLE PARTIAL DENTURE - INITIAL IMPRESSIONS Routine 05/04/2024 11:00 AM EST Partial edentulism, unspecified edentulism class DENTAL CASE MANAGEMENT - MOTIVATIONAL INTV Routine 04/23/2024 1:00 PM EST Encounter for dental examination PROPHYLAXIS - ADULT Routine 04/23/2024 1 :00 PM EST Encounter for dental examination BITEWINGS - FOUR RADIOGRAPHIC IMAGES Routine 04/23/2024 1:00 PM EST Encounter for dental examination PERIODIC ORAL EVALUATION ESTABLISHED PATIENT Routine 04/23/2024 1:00 PM EST Encounter for dental examination CARIES RISK ASSESSMENT & DOC FINDING MOD RISK Routine 04/23/2024 1:00 PM EST Encounter for dental examination NUTRITIONAL COUNSELING CONTROL OF DENTAL DISEASE Routine 04/23/2024 1:00 PM EST Encounter for dental examination ORAL HYGIENE INSTRUCTIONS Routine 04/23/2024 1:00 PM EST Encounter for dental examination ORAL CANCER SCREENING Routine 04/23/2024 1:00 PM EST Encounter for dental examination CASE PRESENTATION SUBS DTL & EXTENSIVE TX PLN Routine 04/23/2024 1:00 PM EST Encounter for dental examination CASE PRESENTATION SUBS DTL & EXTENSIVE TX PLN Routine 04/05/2024 1:00 PM EST Ill-fitting dentures LIMITED ORAL EVALUATION - PROBLEM FOCUSED Routine 04/05/2024 1:00 PM EST Ill-fitting dentures COMP PERIODONTAL EVALUATION - NEW/EST PATIENT Routine 02/24/2023 4:20 PM EDT Encounter for dental examination INTRAORAL - COMP SERIES OF RADIOGRAPHIC IMAGES Routine 12/28/2021 3:00 PM EDT Dental caries noted on examination from Last 3 Months or Most Recently Relevant to Health Maintenance Insurance [facility] Advance Directives Documents on File Type Date Recorded Patient Director Broadcast Expl anation Advance Directives and Ed prieto Will 09/26/2020 9:32 AM
[2024-06-22 14:01] LABS: Alanine Aminotransferase 50 U/L (0-31); Albumin Level 4.3 g/dL (3.5-5.0); Alkaline Phosphatase 57 U/L (39-117); Anion Gap 17 (12-20); Aspartate Amino Transferase 59 U/L (5-31); Bilirubin Total 0.4 mg/dL (0.0-1.0); Blood Urea Nitrogen 12 mg/dL (9-16); Carbon Dioxide 29 mmol/L (22-29); Chloride 103 mmol/L (96-108); Cholesterol 164 mg/dL (<200); Estimated Glomerular Filt Rate > 60; Glucose Random 130 mg/dL (60-115); HDL Cholesterol 48 mg/dL (>40); LDL Cholesterol Calculated 97 mg/dL (<100); Potassium 5.1 mmol/L (3.3-5.1); Sodium 144 mmol/L (135-145); Total Protein 7.9 g/dL (6.5-8.0); Triglycerides 99 mg/dL (<150)
[2024-06-22 14:20] LABS: Creatinine Urine 181.07 mg/dL; Microalbum/Creatinine Ratio Ur 6.6 ug/mg cr (<30)
== END 2024-06-22 12:33 | disposition home or self-care (01) ==
LOC: HO.HHCL 12:32
PROVIDERS: Visit Provider Internal Medicine Geriatric Medicine
DX: E11.65 Type 2 diabetes mellitus with hyperglycemia (principal); I10 Essential (primary) hypertension
CPT/HCPCS: 36415; 80053; 80061; 82043; 82570

== ENCOUNTER 2025-02-06 08:48 | Outpatient (REF) | payer OTHER, SELFPAY ==
--- NOTE | ~2025-02-06 | MM_ITS ---
EXAMINATION: MM SCREENING DIGITAL BREAST TOMOSYNTHESIS, BILATERAL CLINICAL INFORMATION: Screening. Asymptomatic. COMPARISON: Comparison made to multiple prior, most recent February 01, 2024, and most remote March 03, 2018. TECHNIQUE: Digital breast tomosynthesis is performed in mediolateral oblique and craniocaudal views along with computer-aided detection (CAD). Synthesized 2D images are generated from the tomosynthesis. FINDINGS: BREAST COMPOSITION: There are scattered areas of fibroglandular density. BILATERAL BREASTS: No significant masses, suspicious calcifications or other abnormalities are seen in either breast. MM/MM tomosynthesis screening BI IMPRESSION: BILATERAL BREASTS: Negative, no mammographic evidence of malignancy. Normal interval follow-up is recommended in 12 months. ASSESSMENT: BI-RADS: Category 1: Negative RECOMMENDATION: Routine annual mammography screening. FOLLOW-UP: 1 year F/U This examination should not preclude the clinical evaluation of a suspicious palpable abnormality. This patient's information was entered into a reminder system with a target due date for their next mammogram. Electronically signed by: Spenser Rossi MD 02/08/2025 03:25 PM EDT
--- OUTSIDE RECORDS SUMMARY | 2025-02-06 10:03 | XMS_ITS | Encounter Summary ---
Author Organization [employer] Address [address] [place] [address] [address] [place] [address] Care Team Providers Care Sales Associate Cashier Name Role Phone Name, Del SCHMIDT Primary Care Provider [phone] Encounter Details Date Type Department Care Team (Late Contact Info) Description 01/11/2023 Orders Only [facility] [address] [place], [place] [phone] Michelle Corrales LPN Social History Tobacco Use Types Packs/Day Years Used Date Smoking Tobacco: Never Smokeless Tobacco: Never Alcohol Use Standard Drinks/Week Comments Never 0 (1 standard drink = 0.6 oz pur e alcohol) Depression Answer Date Recorded Patient Health Questionnaire-9 Score 0 11/15/2022 Depression Answer Date Recorded Patient Health Questionnaire-2 Score 0 11/15/2022 Comments Unknown Sex and Gender Information Value Date Recorded Sex Assigned at Female 03/15/2022 10:15 AM EDT Legal Sex Female 10:15 AM EDT Gender Identity Female 03/15/2022 10:15 AM EDT Sexual Orientation Straight 03/15/2022 10 :15 AM EDT documented as of this encounter Plan of Treatment Upcoming Encounters Date Type Department Care Team (Late st Contact Info) Description 04/01/2025 1:45 PM EST Office Visit [facility] [address] [place], [place] [phone] Name, MD Del [address] [place] [address] documented as of this encounter Procedures Procedure Name Priority Date/Time Associated Diagnosis Comments BI MAMMOGRAM SCREENING TOMOSYNTHESIS BILATERAL Routine 01/26/2023 10:49 AM EDT documented in this encounter Results * BI Mammogram Screening Tomosynthesis Bilateral (01/26/2023 10:49 AM EDT) Anatomical Region Laterality Modality Breast Bilateral Mammography 01/26/2023 10:4 9 AM EDT Narrative 02/12/2023 3:23 PM EDT [facility] [place] [address] Mammography Report Signed Patient: Kitty Thornton MR#: [id number] : 1950 Acct:[id number] Age/Sex: 72 / F ADM Date: 01/26/23 Loc: HO.MAMMO Attending Dr: Del Mendoza MD Ordering Physician: Del Mendoza MD Results: 0Incomplet e: Needs Additional Imaging Evaluation Date of Service: 01/26/23 Follow Up: Additional Imagi ng Procedure(s): MM tomosynthesis screening BI Accession Number(s): [id number] cc: Del Mendoza MD EXAMINATION: MM SCREENING DIGITAL BREAST TOMOSYNTHESIS, BILATERAL CLINICAL INFORMATION: Screening. Asymptomatic. COMPARISON: Mammography: This study is compared with prior exams dating back to 2017. TECHNIQUE: Digital breast tomosynthesis is performed in both the craniocaudal and mediolateral oblique views along with computer-aided detection (CAD). Synthesized 2D images are generated from the tomosynthesis. FINDINGS: There are scattered areas of fibroglandular density (ACR BI-RADS breast composition Category b). There is a focal asymmetry at the lower inner quadrant of the right breast at anterior depth. Additional mammographic imaging of this finding is advised. Targeted sonography may be performed at the discretion of the diagnostic radiologist. In the left breast, there are no significant masses, abnormal calcifications, or other abnormalities. Few, benign calcifications are present in each breast. MM/MM tomosynthesis screening BI IMPRESSION: Focal asymmetry of the right breast warrants additional mammographic imaging. Sonography may be performed at the discretion of the diagnostic radiologist. No mammographic signs of malignancy left breast. ASSESSMENT: BI-RADS BI-RADS 0 - Incomplete: Needs additional Imaging. RECOMMENDATION: 1. Additional views of the right breast 2. Targeted ultrasound if warranted after review of the additional views. 3. Radiology department staff will contact the patient for additional imaging. Additional Imaging required This examination should not preclude the clinical evaluation of a suspicious palpable abnormality. This patient's information was entered into a reminder system with a target due date for their next mammogram. Dictated By: Herlinda Clarke MD Signed By: <Electronically signed by Herlinda Clarke MD in OV> 02/12/23 1519 DD/ 1049 TD/TT: Lacquer Pin Press Operator: Procedure Note Donotuseinterpreter, Image - 02/12/2023 [facility] [address] [place] [address] Mammography Report Signed Patient: Kitty Thornton MMR#: [id number] : 9Acct:[id number] Age/Sex: 72 / FADM Date: 01/26/23 Loc: HODawnMAMMO Attending Dr: Del Mendoza MD Ordering Physician: Del Mendoza MDResults: 0Incomplet e: Needs Additional Imaging Evaluation Date of Service: 01/26/23Follow Up: Additional Imagi ng Procedure(s): MM tomosynthesis screening BI Accession Number(s): [id number] cc: Del Mendoza MD EXAMINATION: MM SCREENING DIGITAL BREAST TOMOSYNTHESIS, BILATERAL CLINICAL INFORMATION: Screening. Asymptomatic. COMPARISON: Mammography: This study is compared with prior exams dating back to 2017. TECHNIQUE: Digital breast tomosynthesis is performed in both the craniocaudal and mediolateral oblique views along with computer-aided detection (CAD). Synthesized 2D images are generated from the tomosynthesis. FINDINGS: There are scattered areas of fibroglandular density (ACR BI-RADS breast composition Category b). There is a focal asymmetry at the lower inner quadrant of the right breast at anterior depth. Additional mammographic imaging of this finding is advised. Targeted sonography may be performed at the discretion of the diagnostic radiologist. In the left breast, there are no significant masses, abnormal calcifications, or other abnormalities. Few, benign calcifications are present in each breast. MM/MM tomosynthesis screening BI IMPRESSION: Focal asymmetry of the right breast warrants additional mammographic imaging. Sonography may be performed at the discretion of the diagnostic radiologist. No mammographic signs of malignancy left breast. ASSESSMENT: BI-RADS BI-RADS 0 - Incomplete: Needs additional Imaging. RECOMMENDATION: 1. Additional views of the right breast 2. Targeted ultrasound if warranted after review of the additional views. 3. Radiology department staff will contact the patient for additional imaging. Additional Imaging required This examination should not preclude the clinical evaluation of a suspicious palpable abnormality. This patient's information was entered into a reminder system with a target due date for their next mammogram. Dictated By: Herlinda Clarke MD Signed By: <Electronically signed by Herlinda Clarke MD in OV> 02/12/23 1519 DD/ 1049 TD/TT: Lacquer Pin Press Operator: Del Mendoza MD IM BI PROCEDURES Edited Result - Final documented in this encounter Visit Diagnoses Not on filedocumented in this encounter Additional Health Concerns Assessment Noted Time PHQ-9 Depression Total Score: 0 11/16/19 23 1:19 PM EDT documented as of this encounter Care Teams Sales Associate Cashier Relationship Specialty Start Date End Date Name, MD Del [address] [place] [address] PCP - General Family Medicine 06/24/15 documented as of this encounter
--- OUTSIDE RECORDS SUMMARY | 2025-02-06 10:03 | XMS_ITS | Patient Health Record ---
Author Organization [facility] Address [address] [place] [phone] Care Team Providers Care Paper Spooler Name Role Phone Gavin Cyr Katherine [phone] Reason For Referral No Information Plan Of Treatment No Information
--- OUTSIDE RECORDS SUMMARY | 2025-02-06 10:03 | XMS_ITS | Clinical Summary ---
Author Organization [facility] Address [address] [place] [address] Care Team Providers Care Indirect Sales Representative Name Role Phone Unavailable Primary Care Provider [...] Active Active Problems No known active problems Social History Tobacco Use Types Packs/Day Years [...] on file Sexual Orientation Not on file Last Filed Vital Signs Vital Sign Reading Time Taken Comments Blood Pressure 104/66 04/23/2024 1:40 PM EST Pulse 57 04/23/2024 1:40 PM EST Temperature - - Respiratory Rate - - Oxygen Saturation - - Inhaled Oxygen Concentration - - Weight - - Height - - Body Mass Index - - Plan of Treatment Health Maintenance Due Date Last Done Comments Hepatitis C Screening 1950 Medicare Annual Wellness Visit 1967 Imm-Zoster, Recombinant (1 of 2) 1999 Falls Prevention 2014 Imm-RSV (adult) (1 - 1-dose 75+ series) 02/06/2024 Alcohol and Drug Screen 05/16/2024 Depression Annual Screen 05/16/2024 Dental Perio Charting 10/22/2024 10/21/2023 , 02/24/2023, 12/28/2021 [id number] ( season) 2025 02/09/2024, 04/15/2023, 07/28/2022, Additional history exists Imm-Influenza (#1) 2025 02/09/2024, 0 02/12/2019, 02/24/2017, Additional history exists Hypertension Screening (#1) 04/23/2025 Dental BW 04/25/2025 04/23/2024, 06/0 11/2023, 02/24/2023, Additional history exists Dental Examination 04/25/2025 04/23/2024, 0 10/21/2023, 02/24/2023, Additional history exists Dental Prophy 04/25/2025 04/23/2024, 06/0 11/2023, 02/24/2023, Additional history exists Tobacco Screening 07/31/2025 07/31/2024 Dental FMX/Pano 12/30/2026 12/28/2021 Imm-DTaP/Tdap/Td (3 - Td or Tdap) 03/22/2033 023, 08/21/2012 Imm-Pneumococcal 50+ Completed 08/17/2019, 04/21/2016, 10/11/2014 Bone Density Screening Completed 03/16/2024 Procedures Procedure Name Priority Date/Time Associated Diagnosis Comments BITEWINGS - FOUR RADIOGRAPHIC IMAGES Routine 04/23/2024 1:00 PM EST Encounter for dental examination PROPHYLAXIS - ADULT Routine 04/23/2024 1 :00 PM EST Encounter for dental examination PERIODIC ORAL EVALUATION ESTABLISHED PATIENT Routine 04/23/2024 1:00 PM EST Encounter for dental examination COMP PERIODONTAL EVALUATION - NEW/EST PATIENT Routine 02/24/2023 4:20 PM EDT Encounter for dental examination INTRAORAL - COMP SERIES OF RADIOGRAPHIC IMAGES Routine 12/28/2021 3:00 PM EDT Dental caries noted on examination from Last 3 Months or Most Recently Relevant to Health Maintenance Insurance [facility] Advance Directives Documents on File Type Date Recorded Patient Tester Electronic Scale Expl anatjoycelyn Advance Directives and Ed prieto Will 09/26/2020 9:32 AM
--- OUTSIDE RECORDS SUMMARY | 2025-02-06 10:03 | XMS_ITS | Clinical Summary ---
Author Organization [employer] Address [address] [place] [address] 7[address] [place] [address] Care Team Providers Care Rand Cementer Name Role Phone Name, Del SCHMIDT Primary Care Provider [phone] Allergies No known active allergies Medications gabapentin (Neurontin) 600 MG tablet TAKE 1 TABLET BY MOUTH THREE TIMES DAILY IN THE MORNING, EVENING, AND BEDTIME 023 Active DULoxetine (Cymbalta) [address] capsule Take 60 mg by mouth in the morning. 023 Active QUEtiapine (SEROquel) 200 MG tablet Take 200 mg by mouth at bedtime. Active Minoxidil 5 % solution Apply once a day to scalp 60 mL 2 Active Eye Itch Relief 0.035 % solution PLACE 1 DROP IN EACH EYE TWICE DAILY NEEDED 023 Active Blood Pressure kitIndications: Essential hypertension Use as directed 1 kit Active Multiple Vitamin (Multivitamin) tablet TAKE 1 TABLET BY MOUTH EVERY MORNING 30 tablet 11 Active TRUEplus Lancets 33G miscIndications :Type 2 diabetes mellitus with hyperglycemia, without long-term current use of insulin ([facility]) TEST BLOOD SUGAR TWICE DAILY 100 each 11 Active glucose blood (FREESTYLE LITE) test stripIndication s:Type 2 diabetes mellitus with hyperglycemia, without long-term current use of insulin ([facility]) TEST BLOOD SUGAR TWICE DAILY 100 strip 11 Active Trulicity 4.5 MG/0.5ML solution auto-injectorIn dications:Type 2 diabetes mellitus with hyperglycemia, without long-term current use of insulin ([facility]),Ad richter hypertension INJECT ONE PEN (= 4.5MG) SUBCUTANEOUSLY ONCE A WEEK DIRECTED 2 mL 025 Active omeprazole (PriLOSEC) [address] capsule TAKE 1 CAPSULE BY MOUTH EVERY MORNING BEFORE MEALS 90 capsule 3 025 Active metFORMIN (Glucophage) 1000 MG tabletIndicatio ns:Controlled type 2 diabetes mellitus with other specified complication, unspecified whether equipment operator intermodal yard insulin use (CMS/HCC) TAKE 1 TABLET BY MOUTH TWICE DAILY IN THE MORNING AND IN THE EVENING 180 tablet 025 Active simvastatin (Zocor) 40 MG tabletIndicatio ns:Controlled type 2 diabetes mellitus with other specified complication, unspecified whether care home insulin use (CMS/HCC) TAKE 1 TABLET BY MOUTH AT BEDTIME 90 tablet 025 Active metoprolol tartrate (Lopressor) 25 MG tabletIndicatio ns:Controlled type 2 diabetes mellitus with other specified complication, unspecified whether care home insulin use (CMS/HCC) TAKE 1 TABLET BY MOUTH TWICE DAILY IN THE MORNING AND IN THE EVENING 180 tablet 025 Active Calcium Carb-Cholecalci ferol 600-10 MG-MCG tabletIndicatio ns:Controlled type 2 diabetes mellitus with other specified complication, unspecified whether equipment operator intermodal yard insulin use (CMS/HCC) TAKE 1 TABLET BY MOUTH TWICE DAILY IN THE MORNING AND IN THE EVENING 180 tablet 025 Active Alcohol Swabs (Alcohol Prep) 70 % padsIndications :Type 2 diabetes mellitus with other specified complication, unspecified whether equipment operator intermodal yard insulin use (CMS/HCC) USE TWICE DAILY DIRECTED 100 each Active hydroCHLOROthia zide 12.5 MG tablet TAKE 1 TABLET BY MOUTH EVERY MORNING 30 tablet 025 Active Jardiance 10 MG TAKE 1 TABLET BY MOUTH EVERY MORNING 30 tablet 025 Active losartan (Cozaar) 25 MG tablet TAKE 1 TABLET BY MOUTH EVERY MORNING 30 tablet Active hydroCHLOROthia zide 12.5 MG tablet Take 1 tablet (12.5 mg) by mouth Once per day. 30 tablet 024 2024 Discontinued empagliflozin (Jardiance) 10 MG Take 1 tablet (10 mg) by mouth Once per day. 30 tablet 024 2024 Discontinued losartan (Cozaar) 25 MG tablet TAKE 1 TABLET BY MOUTH EVERY MORNING 90 tablet 1 025 2024 Discontinued(R eorder (will not trigger notification to Pharmacy)) Active Problems Problem Noted Date Diagnosed Date Heel pain 12/16/2017 Bunion 12/16/2017 Essential hypertension 04/21/2016 Type 2 diabetes mellitus wit h hyperglycemia, without long-term current use of insulin 06/24/2015 Osteoporosis 06/24/2015 Hypercholesterolemia 06/24/2015 Hemangioma of liver 06/24/2015 Encounters Date Type Department Care Team Description 01/21/2025 Refill [facility] [address] [place] [address] Name, MD Del 01/20/2025 Refill [facility] [address] [place] [address] NameDel MD 01/10/2025 Abstract [facility] [address] [place] [address] 60500 Name, MD Del 01/09/2025 2:00 PM EDT Office Visit [facility] [address] [place] [address] 53335 Name, MD Del Type 2 diabetes mellitus with hyperglycemia, without long-term current use of insulin (CMS/[facility]) (Primary Dx); Low back pain at multiple sites; DJD (degenerative joint disease), lumbosacral 01/09/2025 Travel 01/08/2025 Telephone [facility] [address] [place] [address] 33962 NameDel MD chart prep 12/12/2024 Refill [facility] [address] [place] [address] 74100 NameDel MD Type 2 diabetes mellitus with other specified complication, unspecified whether equipment operator intermodal yard insulin use (CMS/HCC) from Last 3 Months Immunizations Immunization Administration Dates Next Due Influenza High-dose Quadriva lent Preservative Free 03/22/2023,03/16/2022,02/24/2021 Influenza Quadrivalent Adjuvanted 01/30/2020 Influenza injectable quadriv alent IIV4 with preservative 04/21/2016 Influenza injectable quadriv alent preservative free 02/12/2019 Influenza, High Dose Seasona l, Preservative Free 02/09/2024,02/24/2017 Influenza, IIV3, injectable 02/12/2015, 4,03/14/2013 Moderna Covid-19 Vaccine 12+ 09/11/2021 Moderna Covid-19 Vaccine 6+ Bivalent 07/28/2022 Pfizer Covid-19 Vaccine 12+ 02/09/2024, Pneumococcal Conjugate PCV 13 08/17/2019, 016 Pneumococcal Polysaccharide PPSV23 10/11/2014 Tdap 03/22/2023,08/21/2012 Zoster, Recombinant 03/18/2022 Social History Tobacco Use Types Packs/Day Years Used Date Smoking Tobacco: Never Smokeless Tobacco: Never Tobacco Cessation:Counseling Given: Not Answered Alcohol Use Standard Drinks/Week Comments Never 0 (1 standard drink = 0.6 oz pur e alcohol) Depression Answer Date Recorded Patient Health Questionnaire-9 Score 12 06/22/2024 Patient Health Questionnaire-9 Score 12 06/22/2024 Last PHQ-9: Questionnaire Data Not on file 0 06/22/2024 Housing Stability Answer Date Recorded What is your housing situation today? I have bakari caputo 06/22/[address] you li ve. Do you have problems with any of the following? None of the above 06/22/2024 Food Insecurity Answer Date Recorded Within the past 12 months, y ou worried that your food would run out before you got money to buy more: Often true 06/22/2024 Within the past 12 months,th e food you bought just didn't last and you didn't have enough money to get more: Often true 11/2024 Transportation Answer Date Recorded In the past 12 months, has l ack of transportation kept you from medical appts, meetings, work or from getting things needed for daily living? No 06/22/2024 Utilities Answer Date Recorded In the past 12 months, has t he electric, gas, oil or water company threatened to shut off services in your home? No 06/22/2024 Depression Answer Date Recorded Patient Health Questionnaire-2 Score 5 06/22/2024 Internet Access Answer Date Recorded Internet Access Q1 Yes 06/22/2024 Internet Access Q2 Not on file 06/22/2024 Comments Unknown Sex and Gender Information Value Date Recorded Sex Assigned at Female 03/15/2022 10:15 AM EDT Legal Sex Female 10:15 AM EDT Gender Identity Female 03/15/2022 10:15 AM EDT Sexual Orientation Straight 03/15/2022 10 :15 AM EDT Last Filed Vital Signs Vital Sign Reading Time Taken Comments Blood Pressure 136/76 01/09/2025 2:07 PM EDT Pulse 84 01/09/2025 2:07 PM EDT Temperature 35.9 C (96.6 F) 01/09/2025 2:07 PM EDT Respiratory Rate 12 01/09/2025 2:07 PM EDT Oxygen Saturation 97% 01/09/2025 2:07 PM EDT Inhaled Oxygen Concentration - - Weight 55.8 kg (123 lb) 01/09/2025 2:07 PM EDT Height 157.5 cm (5' 2 ) 01/09/2025 2:07 PM EDT Body Mass Index 22.5 01/09/2025 2:07 PM EDT Plan of Treatment Upcoming Encounters Date Type Department Care Team (Late st Contact Info) Description 04/01/2025 1:45 PM EST Office Visit [facility] [address] [place] [address] Name, MD Del [address] [place] [address] Health Maintenance Due Date Last Done Comments Hepatitis A Vaccines (1 of 2 - Risk 2-dose series) 02/06/1969 Hepatitis B Vaccines (1 of 3 - Risk 3-dose series) 2009 Zoster Vaccines (2 of 2) 05/13/2022 03/18/2022 RSV Patients and Patients Aged 60 years or older (1 - 1-dose 75+ series) 02/06/2024 Depression Monitoring 12/20/2024 06/22/2024, 025 COVID-19 Vaccine ( season) 2025 02/09/2024, 04/15/2023, 07/28/2022, Additional history exists Influenza Vaccine (#1) 2025 , 03/22/2023, 03/16/2022, Additional history exists Diabetes: Foot Exam 02/08/2025 02/09/2024, 02/09/2024, 02/09/2024, Additional history exists Diabetes: Urine Protein Screening 06/22/2025 06/22/2024, 02/09/2024, 07/27/2023, Additional history exists Lipid Panel 06/22/2025 06/22/2024, 01/15, 07/27/2023, Additional history exists SDOH Screening 06/22/2025 06/22/2024 Diabetes: Hemoglobin A1C 07/12/2025 025, 06/22/2024, 02/09/2024, Additional history exists Alcohol/Substance Use Screening 01/09/2026 01/09/2025 Tobacco Screening 01/09/2026 01/09/2025 Eye Exam 01/04/2027 01/04/2025, 08/0 01/2024, 11/20/2021 DTaP/Tdap/Td Vaccines (3 - Td or Tdap) 03/22/2033 03/22/2023, 08/21/2012 Colonoscopy Discontinued 09/23/2005 Colorectal Cancer Screening Discontinued Hepatitis C Screening Completed 11/30/2013 Pneumococcal Vaccine: 50+ Years Completed 08/17/2019, 04/21/2016, 10/11/2014 CT Colonography Discontinued FIT DNA/Cologuard Discontinued FIT Discontinued FOBT Discontinued HIB Vaccines Aged Out No longer eligi ble based on patient's age to complete this topic HPV Vaccines Aged Out No longer eligi ble based on patient's age to complete this topic IPV Vaccines Aged Out No longer eligi ble based on patient's age to complete this topic Meningococcal B Vaccine Aged Out No l onger eligible based on patient's age to complete this topic Meningococcal Vaccine Aged Out No pablo jonathan eligible based on patient's age to complete this topic RSV under 20 months Aged Out No longe r eligible based on patient's age to complete this topic Rotavirus Vaccines Aged Out No longer eligible based on patient's age to complete this topic Sigmoidoscopy Discontinued Procedures Procedure Name Priority Date/Time Associated Diagnosis Comments POCT GLYCATED HEMOGLOBIN, TOTAL Routine 01/09/2025 2:08 PM EDT Type 2 diabetes mellitus with hyperglycemia, without long-term current use of insulin ([facility]) POCT GLUCOSE Routine 01/09/2025 2:08 PM EDT Type 2 diabetes mellitus with hyperglycemia, without long-term current use of insulin ([facility]) DIABETES EYE EXAM Routine 01/04/2025 ALBUMIN, RANDOM URINE W/CREATININE Routine 06/22/2024 12:34 PM EST Type 2 diabetes mellitus with hyperglycemia, without long-term current use of insulin ([facility]) Essential hypertension LIPID PANEL, STANDARD Routine 06/22/2024 12:34 PM EST Type 2 diabetes mellitus with hyperglycemia, without long-term current use of insulin ([facility]) Essential hypertension HEPATITIS C ANTIBODY Routine 11/30/2013 COLONOSCOPY Routine 09/23/2005 from Last 3 Months or Most Recently Relevant to Health Maintenance Results * (ABNORMAL) POCT HGB A1C (01/09/2025 2:08 PM EDT) Hemoglobin A1C 6.1(A) 4.0 - 5.7 % QC Media Lot # [id number] Lot# Expiration Date Blood 01/09/2025 2:08 PM EDT us Del Mendoza MD POINT OF CARE TEST ENTER/EDIT OR DERABLES Final Result * POCT Glucose (01/09/2025 2:08 PM EDT) Glucose Blood, POC 77 60 - 200 mg/dL QC Media Lot # [id number] Lot# Expiration Date Blood Capillary blood specimen / Unknown 01/09/2025 2:08 PM EDT us Del Mendoza MD POINT OF CARE TEST ENTER/EDIT OR DERABLES Final Result * Diabetes Eye Exam (01/04/2025) Eye Exam Normal Normal 01/04/2025 us Del Mendoza MD HEALTH MAINTENANCE Final Result * Albumin, Random Urine W/Creatinine (06/22/2024 12:34 PM EST) Creatinine, Urine 181.07 mg/dL [facility] Microalbumin Urine 12.0 mg/L [facility] Microalbum Creatinine Ratio Ur 6.6 <30 ug/mg cr [facility] Comment:Albumin/Creatinine R atio Reference Ranges: Normal: < 30 ug/mg creatinine Microalbuminuria: 30 - 300 ug/mg creatinineClinical Albuminuria: > 300 ug/mg creatinine Urine (Urine, Random) 06/22/2024 12:34 PM EST 06/22/2024 1:21 PM EST us Del Mendoza MD LAB URINE ORDERABLES Final Resul t Performing Organization Address City/State/[facility] Co de Phone Number [facility] [address] [place] [address] [phone] * Lipid Panel, Standard (06/22/2024 12:34 PM EST) Triglycerides 99 <150 mg/dL [facility] Comment:Desirable Triglyceri de: less than 150 mg/dLBorderline High Triglyceride 150-199 mg/dLHigh Triglyceride: 200-499 mg/dLVery High Triglyceride: greater than or equal to 5OO mg/dL Cholesterol 164 <200 mg/dL [facility] Comment:Desirable Cholestero l: less than 200 mg/dLBorderline High Cholesterol: 200-239 mg/dLHigh Cholesterol: greater than 239 mg/dL LDL Cholesterol Calculated 97 <100 mg/dL [facility] Comment:Desirable LDL: less than 100 mg/dLNear Optimal/Above Optimal LDL: 110- 129 mg/dLBorderline High LDL: 130-159 mg/dLHigh LDL: 160-189 mg/dLVery High LDL: greater than or equal to 190 mg/dL HDL Cholesterol 48 >40 mg/dL [facility] Comment:Desirable HDL: great er than 40 mg/dL Note: This HDL assay may give artificially low results in patients with liver disease. Blood Venous blood specimen / Unknown 06/22/2024 12:34 PM EST 06/22/2024 1:23 PM EST us Del Mendoza MD LAB BLOOD ORDERABLES Final Resul t [facility] [address] [place] [address] [phone] * Hepatitis C Antibody (11/30/2013) Hepatitis C Antibody Nonreactive Blood Del Mendoza MD HEALTH MAINTENANCE Final Result * Colonoscopy (09/23/2005) Colonoscopy Normal Normal Gavin Cyr MD HEALTH MAINTENANCE Final Result from Last 3 Months or Most Recently Relevant to Health Maintenance Insurance [employer] (O D-SNP) YESENIA CHAVEZ [id number] Care Teams Rand Cementer Relationship Specialty Start Date End Date Name, MD Del [address] [place] [address] PCP - General Family Medicine 06/24/15
--- OUTSIDE RECORDS SUMMARY | 2025-02-06 10:03 | XMS_ITS | Encounter Summary ---
Author Organization [employer] Address [address] [place] [address] 7 [place] [address] Care Team Providers Care Electronics Assembler And Tester Name Role Phone Name, Del SCHMIDT Primary Care Provider [phone] Encounter Details Date Type Department Care Team (Late st Contact Info) Description 06/22/2022 Orders Only [facility] [address] [place] [phone] Susan Sharma LPN Social History Tobacco Use Types Packs/Day Years Used Date Smoking Tobacco: Never Assessed Comments Unknown Sex and Gender Information Value [...] Description 04/01/2025 1:45 PM EST Office Visit [facility] [address] [place] [phone] NameDel MD [address] [place] [address] documented as of this encounter Visit Diagnoses Not on filedocumented in this encounter Care Teams Electronics Assembler And Tester Relationship Specialty Start Date End Date Del Mendoza MD [address] [place] [phone] PCP - General Family Medicine 06/24/15 documented as of this encounter
--- OUTSIDE RECORDS SUMMARY | 2025-02-06 10:03 | XMS_ITS | Encounter Summary ---
Author Organization [employer] Address [address] [place] [address] 7 [place] [address] Care Team Providers Care Fitness Management Director Name Role Phone Name, Del SCHMIDT Primary Care Provider [phone] Encounter Details Date Type Department Care Team (Late Contact Info) Description 10/27/2022 Abstract [facility] [address] [place] [phone] Del Mendoza MD [address] [place] [address] Social History Tobacco Use Types Packs/Day Years Used Date Smoking Tobacco: Never Smokeless Tobacco: Never Comments Unknown Sex and Gender Information Value [...] Description 04/01/2025 1:45 PM EST Office Visit [facility] [address] [place] [address] Del Mendoza MD [address] [place] [address] documented as of this encounter Visit Diagnoses Not on filedocumented in this encounter Care Teams Fitness Management Director Relationship Specialty Start Date End Date Del Mendoza MD [address] [place] [address] [phone] PCP - General Family Medicine 06/24/15 documented as of this encounter
--- OUTSIDE RECORDS SUMMARY | 2025-02-06 10:03 | XMS_ITS | Encounter Summary ---
Author Organization [employer] Address [address] [facility] 7t [place] [address] Care Team Providers Care Account Underwriter Name Role Phone Name, Del SCHMIDT Primary Care Provider [phone] Reason for Visit * Reason Comments Med Refill Encounter Details Date Type Department Care Team ([facility] st Contact Info) Description 07/02/2024 Refill [facility] [address] [place], [place] [phone] Елена Mac MD [address] [place], [place] [phone] Controlled type 2 diabetes mellitus with other specified complication, 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) Social History Tobacco Use Types Packs/Day Years [...] Description 04/01/2025 1:45 PM EST Office Visit [facility] [address] [place] [address]85 NameDel MD [address] [place] [address] documented as of this encounter Visit Diagnoses Diagnosis Controlled type 2 diabetes mellitus with other specified complication, unspecified whether skilled nursing insulin use ([facility]) documented in this encounter Additional Health Concerns Assessment Noted Time PHQ-9 Depression Total Score: 12 025 11:53 AM EST documented as of this encounter Care Teams Account Underwriter Relationship Specialty Start Date End Date Del Mendoza MD [address] [place] [phone] PCP - General Family Medicine 06/24/15 documented as of this encounter
--- OUTSIDE RECORDS SUMMARY | 2025-02-06 10:03 | XMS_ITS | Encounter Summary ---
Author Organization [employer] Address [address] [place] [address] 7t [place] [address] Care Team Providers Care Bulk Picker Name Role Phone Name, Del SCHMIDT Primary Care Provider [phone] Encounter Details Date Type Department Care Team (Late st Contact Info) Description 07/19/2022 Orders Only [facility] [address] [place] [address] Michelle Corrales LPN Social History Tobacco Use [...] Description 04/01/2025 1:45 PM EST Office Visit [facility] [address] [place] [address] Del Mendoza MD [address] [place] [address] documented as of this encounter Visit Diagnoses Not on filedocumented in this encounter Care Teams Bulk Picker Relationship Specialty Start Date End Date Del Mendoza MD [address] [place] [address] PCP - General Family Medicine 06/24/15 documented as of this encounter
== END 2025-02-06 08:49 | disposition home or self-care (01) ==
LOC: HO.MAMMO 08:48
PROVIDERS: PCP Internal Medicine Geriatric Medicine; Visit Provider Internal Medicine Geriatric Medicine
DX: Z12.31 Encounter for screening mammogram for malignant neoplasm of breast (principal)
CPT/HCPCS: 77063; 77067

== ENCOUNTER → 2025-02-06 09:15 | Outpatient (BNV) | payer OTHER, SELFPAY | PROVIDERS: PCP Internal Medicine Geriatric Medicine; Visit Provider Radiology Body Imaging | DX: Z12.31 Encounter for screening mammogram for malignant neoplasm of breast (principal) | CPT/HCPCS: 77063; 77067 ==

== ENCOUNTER 2025-03-01 08:59 | Outpatient (REF) | payer OTHER, SELFPAY ==
[2025-03-01 12:15] LABS: Alanine Aminotransferase 35 U/L (0-31); Albumin Level 4.9 g/dL (3.5-5.0); Alkaline Phosphatase 57 U/L (39-117); Anion Gap 16 (12-20); Aspartate Amino Transferase 41 U/L (5-31); Blood Urea Nitrogen 11 mg/dL (9-16); Calcium 10.0 mg/dL (8.4-10.2); Carbon Dioxide 28 mmol/L (22-29); Chloride 103 mmol/L (96-108); Cholesterol 178 mg/dL (<200); Estimated Glomerular Filt Rate > 60; HDL Cholesterol 46 mg/dL (>40); Potassium 5.1 mmol/L (3.3-5.1); Sodium 142 mmol/L (135-145); Total Protein 8.1 g/dL (6.5-8.0); Triglycerides 172 mg/dL (<150)
== END 2025-03-01 09:00 | disposition home or self-care (01) ==
LOC: HO.HHCL 08:59
PROVIDERS: PCP Internal Medicine Geriatric Medicine; Visit Provider Internal Medicine Geriatric Medicine
DX: E11.65 Type 2 diabetes mellitus with hyperglycemia (principal)
CPT/HCPCS: 36415; 80053; 80061